=== PATIENT | male | born 1965 | race American Indian/Alaskan Native ===

== ENCOUNTER 2018-10-13 11:40 | Inpatient (IN) | payer OTHER ==
--- NOTE | 2018-10-13 11:45 | Emergency Department Report ---
Blank Doc - Documentation Documentation: This is a 53-year-old male that presents with right facial drooping and right sided weakness. This initial assessment/diagnostic orders/clinical plan/treatment(s) is/are subject to change based on patient's health status, clinical progression and re- assessment by fellow clinical providers in the ED. Further treatment and workup at subsequent clinical providers discretion. Patient/guardians urged not to elope from the ED as their condition may be serious if not clinically assessed and managed. Initial orders include: 1- Patient sent to [facility] for further evaluation and treatment 2- Stroke code 3- labs 4- CT
[2018-10-13] MEDS ORDERED: ASPIRIN PO ONE (12:03)
--- NOTE | 2018-10-13 12:04 | Emergency Department Report ---
HPI - General Chief Complaint: Neuro Symptoms/Deficit Time Seen by Provider: 10/13/18 11:44 - HPI HPI: Room 1 The patient is a 53-year-old male presenting with chief complaint of facial droop. Family states the patient has had episodes of "spacing out" and appearing as though he was in a transfer several weeks. For the past 4 days the patient has noticed difficulty speaking which includes slurred speech and the ability to get out certain words. 2 days ago coworkers noticed that "something wasn't right" with the patient but did not give any specific findings. The patient went to an urgent care facility and was diagnosed with an allergic reaction to lisinopril and carpal tunnel syndrome. Patient states he continued to notice drooling and difficulty speaking. The patient went to work today he was told to be evaluated at [facility] prior to restarting work. There is a patient was assessed and sent to the ED for further evaluation. Location: [See above] Duration: [See above] Quality: [See above] Severity: [See above] Modifying factors: [see above] Context: [see above] Mode of transportation: [not driving] ED Past Medical Hx - Past Medical History Hx Diabetes: Yes - Surgical History Past Surgical History?: No - Family History Family history: no significant - Social History Smoking Status: Never Smoker Substance Use Type: Alcohol (occasional) ED Review of Systems ROS: Stated complaint: POSS STROKE Other details as noted in HPI Constitutional: no symptoms reported Eyes: denies: eye pain ENT: denies: throat pain Respiratory: no symptoms reported Cardiovascular: denies: chest pain Endocrine: no symptoms reported Gastrointestinal: denies: vomiting Genitourinary: denies: dysuria Musculoskeletal: denies: back pain Neurological: paresthesias. denies: headache Physical Exam - Physical Exam Physical Exam: GENERAL: The patient is well-developed well-nourished male sitting on stretcher not appear to be in acute distress. [] HEENT: Normocephalic. Atraumatic. Extraocular motions are intact. Patient has moist mucous membranes. NECK: Supple. Trachea midline CHEST/LUNGS: Clear to auscultation. There is no respiratory distress noted. HEART/CARDIOVASCULAR: Regular. There is no tachycardia. There is no gallop rub or murmur. ABDOMEN: Abdomen is soft, nontender. Patient has normal bowel sounds. There is no abdominal distention. SKIN: There is no rash. There is no edema. There is no diaphoresis. NEURO: During the exam the patient appears to have focal twitching/seizure of the left face lasting approximately 25 seconds. The patient is awake and able to follow commands throughout the episode. The patient is awake, alert, and oriented. The patient is cooperative. The patient has a left-sided facial droop and his tongue deviates to the left otherwise Cranial nerves II through XII grossly intact. The patient has normal speech. Patient able to hold either leg at 30 angle for 5 second count MUSCULOSKELETAL: There is no evidence of acute injury. NIHSS= 3 LOC a. Alert= 0 Not alert but arousable to minor stimuli=1 Not alert requires repeated or strong stimuli to move= 2 Responds only reflex motor or unresponsive=3 b. asks month and age answers both correctly= 0 answers one correctly= 1 answers neither correctly= 2 Best Gaze normal= 0 abnormal in one or both but forced deviation or total paresis absent= 1 forced deviation or total gaze paresis= 2 Visual no visual loss= 0 partial hemianopia= 1 complete hemianopia= 2 bilateral hemianopia= 3 Facial Palsy normal= 0 minor paralysis= 1 (+)partial paralysis= 2 complete paralysis= 3 Motor Arm no drift= 0 drift before 10 secs but doesnt hit bed= 1 some effort against gravity= 2 no effort against gravity= 3 no movement= 4 Motor leg no drift= 0 drift before 5 secs but doesnt hit bed= 1 drifts to bed before 5 secs= 2 no effort against gravity= 3 no movement= 4 Limb ataxia absent=0 present in one limb= 1 present in two limbs= 2 Sensory normal= 0 (+)mild sensory loss= 1 severe (unaware of being touched)= 2 Best language mild/some loss of fluency= 1 severe= 2 mute= 3 Dysarthria normal= 0 slurs some words= 1 severe/unintelligible= 2 Extinction and Inattention no abnormality= 0 visual, tactile, auditory or personal inattention= 1 profound (doesnt recognize own hand or orients to only one side= 2 ED Course - Consultations Consultation #1: 10/13/18 12:04 Case discussed with Tele-neurologist- no TPA. Recommends CTA brain and neck ED Medical Decision Making - Lab Data Result diagrams: 10/13/18 11:58 10/13/18 11:58 - EKG Data -: EKG Interpreted by Mi EKG shows normal: sinus rhythm Rate: normal - EKG Data When compared to previous EKG there are: previous EKG unavailable Interpretation: other (no ischemic changes seen) - Radiology Data Radiology results: report reviewed (CT head, CT brain, CTA neck), image reviewed (CT head, CTA brain, CTA neck) [address] [address] Cat Scan Report Signed Patient: ROHAN FONSECA MR#: [id number] 6 : 1965 Acct:[id number] Age/Sex: 53 / M ADM Date: 10/13/18 Loc: ED Attending Dr: Ordering Physician: PERLA GAGE NP Date of Service: 10/13/18 Procedure(s): CT head/brain wo con Accession Number(s): [id number] cc: PERLA GAGE NP CT HEAD WITHOUT CONTRAST: HISTORY: Stroke symptoms. TECHNIQUE: Sequential 2.5mm CT images. COMPARISON: none. FINDINGS: Cerebral Parenchyma: There is subtle sulcal effacement in the right parietal lobe which is best demonstrated on images 45- 52. The brain demonstrates normal density throughout. No large hypodense ischemic infarct is identified. No chronic infarct is appreciated. Cerebellum: Within normal limits. Brainstem: Within normal limits. Ventricles: Normal. Sella: Normal. Extra-axial spaces: Normal. Basal Cisterns: Normal. Intracranial Hemorrhage: None. Midline Shift: None. Calvarium: Normal. Sinuses: Normal. Masto id Air Cells: Normal. Visualized Orbits: Normal. IMPRESSION: Subtle sulcal effacement is identified in the right parietal lobe. This does not have the typical appearance of an ischemic infarct although abnormality in this area is suspected. This could represent an evolving infarct or possibly an underlying brain lesion. Consider further imaging with MR with contrast. These findings were discussed with Dr. Xie in the emergency department at 1200 hrs. Transcribed By: TTR Dictated By: LUCILLE LEONE JR, MD Electronically Authenticated By: LUCILLE LEONE JR, MD Signed Date/Time: 10/13/181204 DD/ 02 TD/TT: 10/13/181204 [address] [address] Cat Scan Report Signed Patient: ROHAN FONSECA MR#: [id number] 6 : 1965 Acct:[id number] Age/Sex: 53 / M ADM Date: 10/13/18 Loc: ED Attending Dr: Ordering Physician: KRZYSZTOF XIE MD Date of Service: 10/13/18 Procedure(s): CT angio head Accession Number(s): [id number] cc: KRZYSZTOF XIE MD CTA HEAD: HISTORY: Dysarthria, left sided numbness. TECHNIQUE: Helical CT images after IV contrast with 0.625mm reformations. Sagittal and coronal reformats. Rotational MIP images. 3D volume rendering technique. FINDINGS: The arterial structures of the anterior and posterior circulations are patent throughout. No evidence for stenosis, occlusion or aneurysm. A small right posterior communicating artery is identified. IMPRESSION: Unremarkable CTA head. Transcribed By: TTR Dictated By: LUCILLE LEONE JR, MD Electronically Authenticated By: LUCILLE LEONE JR, MD Signed Date/Time: 10/13/18 1522 DD/ 1522 TD/TT: 10/13/18 15[address] [place] [id number] Cat Scan Report Signed Patient: ROHAN FONSECA MR#: [id number] 6 : 1965 Acct:[id number] Age/Sex: 53 / M ADM Date: 10/13/18 Loc: ED Attending Dr: Ordering Physician: KRZYSZTOF XIE MD Date of Service: 10/13/18 Procedure(s): CT angio neck Accession Number(s): [id number] cc: KRZYSZTOF XIE MD CTA NECK: HISTORY: Dysarthria, left-sided numbness. TECHNIQUE: Helical CT following IV contrast. Sagittal and coronal reformatted images. 3D volume rendering technique. Stenosis was calculated using NASCET criteria. FINDINGS: The visualized aortic arch, innominate artery and proximal bilateral subclavian arteries are widely patent with less than 20% stenosis. Within the right carotid system: Less than 20% stenosis. Within the left carotid system: There is mild partially calcified plaque in the left carotid bulb. Less than 20% stenosis. The cervical vertebral arteries are patent with less than 20% stenosis. IMPRESSION: No hemodynamically significant stenosis is identified in the neck. Transcribed By: TTR Dictated By: LUCILLE LEONE JR, MD Electronically Authenticated By: LUCILLE LEONE JR, MD Signed Date/Time: 10/13/18 152 DD/ 1520 TD/TT: 10/13/18 152 - Differential Diagnosis CVA, TIA, focal seizure, Critical care attestation.: If time is entered above; I have spent that time in minutes in the direct care of this critically ill patient, excluding procedure time. ED Disposition Clinical Impression: CVA (cerebral vascular accident) Disposition: DC-[id number] OP ADMIT IP TO THIS HOSP Is pt being admited?: Yes Does the pt Need Aspirin: Yes Condition: Fair Time of Disposition: 15:43 (hospitalist paged (Dr Mcadams))
--- NOTE | 2018-10-13 12:10 | Cat Scan Report ---
CT HEAD WITHOUT CONTRAST: HISTORY: Stroke symptoms. TECHNIQUE: Sequential 2.5mm CT images. COMPARISON: none. FINDINGS: Cerebral Parenchyma: There is subtle sulcal effacement in the right parietal lobe which is best demonstrated on images 45-52. The brain demonstrates normal density throughout. No large hypodense ischemic infarct is identified. No chronic infarct is appreciated. Cerebellum: Within normal limits. Brainstem: Within normal limits. Ventricles: Normal. Sella: Normal. Extra-axial spaces: Normal. Basal Cisterns: Normal. Intracranial Hemorrhage: None. Midline Shift: None. Calvarium: Normal. Sinuses: Normal. Mastoid Air Cells: Normal. Visualized Orbits: Normal. IMPRESSION: Subtle sulcal effacement is identified in the right parietal lobe. This does not have the typical appearance of an ischemic infarct although abnormality in this area is suspected. This could represent an evolving infarct or possibly an underlying brain lesion. Consider further imaging with MR with contrast. These findings were discussed with Dr. Jensen in the emergency department at 1200 hrs.
[2018-10-13 12:11] LABS: Basophils % (Auto) 0.6 % (0.0-1.8); Eosinophils % (Auto) 0.2 % (0.0-4.3); Hemoglobin 14.3 gm/dl (11.8-15.2); Lymphocytes % (Auto) 35.1 % (13.4-35.0); Mean Corpuscular HGB Conc 33 % (32-34); Mean Corpuscular Volume 90 fl (84-94); Monocytes # (Auto) 0.3 K/mm3 (0.0-0.8); Monocytes % (Auto) 4.4 % (0.0-7.3); Platelet Count 247 K/mm3 (140-440); Red Blood Count 4.78 M/mm3 (3.65-5.03); Red Cell Distribution Width 13.8 % (13.2-15.2)
[2018-10-13 12:38] LABS: INR 0.9 (0.87-1.13); Partial Thromboplastin Time 20.7 Sec. (24.2-36.6)
[2018-10-13 12:41] LABS: Creatine Kinase MB 2.4 ng/mL (0.0-4.0)
[2018-10-13 12:42] LABS: BUN/Creatinine Ratio 14; Blood Urea Nitrogen 14 mg/dL (9-20); Calcium 9.8 mg/dL (8.4-10.2); Hemolysis Index 0
[2018-10-13] MEDS ORDERED: ATIVAN IV ONE (13:15)
[2018-10-13] MEDS ORDERED: ATIVAN ONE (13:16)
--- NOTE | 2018-10-13 15:25 | Cat Scan Report ---
CTA NECK: HISTORY: Dysarthria, left-sided numbness. TECHNIQUE: Helical CT following IV contrast. Sagittal and coronal reformatted images. 3D volume rendering technique. Stenosis was calculated using NASCET criteria. FINDINGS: The visualized aortic arch, innominate artery and proximal bilateral subclavian arteries are widely patent with less than 20% stenosis. Within the right carotid system: Less than 20% stenosis. Within the left carotid system: There is mild partially calcified plaque in the left carotid bulb. Less than 20% stenosis. The cervical vertebral arteries are patent with less than 20% stenosis. IMPRESSION: No hemodynamically significant stenosis is identified in the neck.
--- NOTE | 2018-10-13 15:27 | Cat Scan Report ---
CTA HEAD: HISTORY: Dysarthria, left sided numbness. TECHNIQUE: Helical CT images after IV contrast with 0.625mm reformations. Sagittal and coronal reformats. Rotational MIP images. 3D volume rendering technique. FINDINGS: The arterial structures of the anterior and posterior circulations are patent throughout. No evidence for stenosis, occlusion or aneurysm. A small right posterior communicating artery is identified. IMPRESSION: Unremarkable CTA head.
--- NOTE | 2018-10-13 16:40 | Consultation ---
History of Present Illness Consult date: 10/13/18 History of present illness: [facility] [id number] : 67 Impression: Stroke : no tpa last known well was 4 days ago, possible right bg stroke, will obtain CTA H/N - Not a tpa candidate due to: (No tPA last known normal is four days prior), still concerned about thrombus because of fluctuating signs, probably outside of the window. If CTA H/N is negative for thrombus would Tele, IV fluids, swallow study, Asprin if no contraindications, PT/OT/ST, and Echo, and inpatient neuro consult. ADDENDUM CTA H/N is negative, Differential Diagnosis: 1. Cardioembolic stroke 2. Small vessel disease/lacune 3. Thromboembolic, [id number] mechanism 4. Hypercoagulable state-related infarct 5. Transient ischemic attack 6. Thrombotic mechanism, large artery disease Comments: [facility] contacted: 1147 am [facility] at bedside: 1150 am NIHSS assessment time: same Recommendations: Inpatient neurology consultation Inpatient stroke evaluation as per Neurology/ Internal Medicine Discussed with ED MD Please call with questions CC History of Present Illness Patient is a 53 year old male whose noticed that upon wake up he had slurred speech. He was noraml then , and was slurred and has been like that for a few days, that his speech was slurrred. He went to the job, and did not seem correc ton Wednesday and could not come back till cleared. he has weakness in lef tface. Diagnostic: CT head without Exam: NIHSS is 4 1A: Level of Consciousness - Alert; keenly responsive 0 1B: Ask Month and Age - Both Questions Right 0 1C: 'Blink Eyes' & 'Squeeze Hands' - Performs Both Tasks 0 2: Test Horizontal Extraocular Movements - Normal 0 3: Test Visual Prakash - No Visual Loss 0 4: Test Facial Palsy - Minor paralysis (flat nasolabial fold, smile asymetry) +1 5A: Test Left Arm Motor Drift - Drift, but doesn't hit bed +1 5B: Test Right Arm Motor Drift - No Drift for 10 Seconds 0 6A: Test Left Leg Motor Drift - Drift, but doesn't hit bed +1 6B: Test Right Leg Motor Drift - No Drift for 5 Seconds 0 7: Test Limb Ataxia - No Ataxia 0 8: Test Sensation - Mild-Moderate Loss: Less Sharp/More Dull +1 9: Test Language/Aphasia - Normal; No aphasia 0 10: Test Dysarthria - Normal 0 11: Test Extinction/Inattention - No abnormality 0 Medical Decision Making: - Extensive number of diagnosis or management options are considered above. - Extensive amount of complex data reviewed. - High risk of complication and/or morbidity or mortality are associated with differential diagnostic considerations above. - There may be Uncertain outcome and increased probability of prolonged functional impairment or high probability of severe prolonged functional impairment associated with some of these differential diagnosis. Medical Data Reviewed: 1.Data reviewed include clinical labs, radiology, Medical Tests; 2.Tests results discussed w/performing or interpreting physician; 3.Obtain ing/reviewing old medical records; 4.Obtaining case history from another source; 5.Independent review of image, tracing or specimen. Patient was informed the Neurology Consult would happen via telehealth (remote video) and consented to receiving care in this manner. Medications and Allergies Allergies Allergy/AdvReac Type Severity Reaction Status Date / Time No Known Allergies Allergy Verified 10/13/18 13:15 Home Medications Medication Instructions Recorded Confirmed Last Taken Type Atorvastatin [Lipitor Tab] 80 mg PO QHS 10/13/18 10/13/18 1 Day Ago History ~10/12/18 Insulin Degludec [Tresiba 25 unit SQ HS 10/13/18 10/13/18 1 Day Ago History Flextouch U-100] ~10/12/18 Lisinopril [Zestril] 5 mg PO QDAY 10/13/18 10/13/18 1 Day Ago History ~10/12/18 metFORMIN [Glucophage] 500 mg PO BID 10/13/18 10/13/18 1 Day Ago History ~10/12/18 Physical Examination - Vital Signs Vital Signs: Vital Signs Pulse Resp BP Pulse Ox 105 H 22 133/113 95 10/13/18 12:00 10/13/18 12:00 10/13/18 12:00 10/13/18 12:00 Results - Laboratory Findings CBC and BMP: 10/13/18 11:58 10/13/18 11:58 Abnormal Lab Findings: Abnormal Labs 10/13/18 10/13/18 10/13/18 11:48 11:58 11:58 Lymph % (Auto) 35.1 H APTT 20.7 L Thrombin Time 20.0 H Chloride Glucose POC Glucose 345 H Total Creatine Kinase 10/13/18 11:58 Lymph % (Auto) APTT Thrombin Time Chloride 97.4 L Glucose 421 H POC Glucose Total Creatine Kinase 210 H
[2018-10-13 17:34] LABS: Bilirubin,Urine NEG (Negative); Blood,Urine NEG (Negative); Color,Urine Yellow (Yellow); Mucus,Urine FEW /HPF; Protein,Urine <15 mg/dL mg/dL (Negative); RBC,Urine < 1.0 /HPF (0.0-6.0); Urobilinogen,Urine < 2.0 mg/dL (<2.0); WBC,Urine < 1.0 /HPF (0.0-6.0)
--- NOTE | 2018-10-13 17:51 | History and Physical Report ---
History of Present Illness Date of examination: 10/13/18 Date of admission: 10/13/18 15:45 Chief complaint: Left-sided numbness for 4 days History of present illness: 53-year-old male with history of hypertension, insulin-dependent diabetes comes in for left-sided numbness of 4 days' duration. Patient also has some weakness on the left side which has resolved. Patient has some left facial weakness which is persistent. No nausea no vomiting. No nasal regurgitation of fluid. Patient has some dysarthria and also drooling of fluid from the left side of the mouth. No fever or chills. No diplopia. No ataxic gait. Patient went to his PCP and was referred to emergency room for further evaluation. Past Medical History Diabetes: Yes Hypertension Hyperlipidemia Was admitted as DKA few years ago.--About 20 years ago Surgical History Past Surgical History?: No Family History Family history: no significant Social History Smoking Status: Never Smoker Substance Use Type: Alcohol (occasional) Review of Systems ROS: Stated complaint: POSS STROKE Other details as noted in HPI Constitutional: no symptoms reported Eyes: denies: eye pain ENT: denies: throat pain Respiratory: no symptoms reported Cardiovascular: denies: chest pain Endocrine: no symptoms reported Gastrointestinal: denies: vomiting Genitourinary: denies: dysuria Musculoskeletal: denies: back pain Neurological: paresthesias. denies: headache , left-sided numbness and left facial weakness Medications and Allergies Allergies Allergy/AdvReac Type Severity Reaction Status Date / Time No Known Allergies Allergy Verified 10/13/18 13:15 Home Medications Medication Instructions Recorded Confirmed Last Taken Type Atorvastatin [Lipitor Tab] 80 mg PO QHS 10/13/18 10/13/18 1 Day Ago History ~10/12/18 Insulin Degludec [Tresiba 25 unit SQ HS 10/13/18 10/13/18 1 Day Ago History Flextouch U-100] ~10/12/18 Lisinopril [Zestril] 5 mg PO QDAY 10/13/18 10/13/18 1 Day Ago History ~10/12/18 metFORMIN [Glucophage] 500 mg PO BID 10/13/18 10/13/18 1 Day Ago History ~10/12/18 Exam - Constitutional Vitals: Temp Pulse Resp BP Pulse Ox 100 H 18 136/94 97 10/13/18 13:16 10/13/18 13:16 10/13/18 13:16 10/13/18 13:16 General appearance: Present: no acute distress, well-nourished - EENT Eyes: Present: PERRL ENT: hearing intact, clear oral mucosa - Neck Neck: Present: supple, normal ROM - Respiratory Respiratory effort: normal Respiratory: bilateral: CTA - Cardiovascular Heart rate: 100 Rhythm: regular Heart Sounds: Present: S1 & S2. Absent: rub, click - Extremities Extremities: no ischemia, pulses intact, pulses symmetrical, No edema Peripheral Pulses: within normal limits - Abdominal General gastrointestinal: Present: soft, non-tender, non-distended, normal bowel sounds Male genitourinary: Present: normal - Rectal Rectal Exam: deferred - Integumentary Integumentary: Present: clear, warm, dry - Musculoskeletal Musculoskeletal: gait normal, strength equal bilaterally - Psychiatric Psychiatric: appropriate mood/affect, intact judgment & insight, other (left facial weakness, no motor deficits power is 5/5 reflexes are normal to brisk) - Neurologic Neurologic: CNII-XII intact, moves all extremities Results - Labs CBC & Chem 7: 10/13/18 11:58 10/13/18 11:58 Labs: Laboratory Last Values WBC 5.8 K/mm3 (4.5-11.0) 10/13/18 11:58 RBC 4.78 M/mm3 (3.65-5.03) 10/13/18 11:58 Hgb 14.3 gm/dl (11.8-15.2) 10/13/18 11:58 Hct 43.0 % (35.5-45.6) 10/13/18 11:58 MCV 90 fl (84-94) 10/13/18 11:58 MCH 30 pg (28-32) 10/13/18 11:58 MCHC 33 % (32-34) 10/13/18 11:58 RDW 13.8 % (13.2-15.2) 10/13/18 11:58 Plt Count 247 K/mm3 (140-440) 10/13/18 11:58 Lymph % (Auto) 35.1 % (13.4-35.0) H 10/13/18 11:58 [place] % (Auto) 4.4 % (0.0-7.3) 10/13/18 11:58 Eos % (Auto) 0.2 % (0.0-4.3) 10/13/18 11:58 Baso % (Auto) 0.6 % (0.0-1.8) 10/13/18 11:58 Lymph # 2.0 K/mm3 (1.2-5.4) 10/13/18 11:58 [place] # 0.3 K/mm3 (0.0-0.8) 10/13/18 11:58 Eos # 0.0 K/mm3 (0.0-0.4) 10/13/18 11:58 Baso # 0.0 K/mm3 (0.0-0.1) 10/13/18 11:58 Seg Neutrophils % 59.7 % (40.0-70.0) 10/13/18 11:58 Seg Neutrophils # 3.5 K/mm3 (1.8-7.7) 10/13/18 11:58 PT 12.7 Sec. (12.2-14.9) 10/13/18 11:58 INR 0.90 (0.87-1.13) 10/13/18 11:58 APTT 20.7 Sec. (24.2-36.6) L 10/13/18 11:58 Thrombin Time 20.0 Sec. (15.1-19.6) H 10/13/18 11:58 Sodium 138 mmol/L (137-145) 10/13/18 11:58 Potassium 4.6 mmol/L (3.6-5.0) 10/13/18 11:58 Chloride 97.4 mmol/L (98-107) L 10/13/18 11:58 Carbon Dioxide 24 mmol/L (22-30) 10/13/18 11:58 Anion Gap 21 mmol/L 10/13/18 11:58 BUN 14 mg/dL (9-20) 10/13/18 11:58 Creatinine 1.0 mg/dL (0.8-1.5) 10/13/18 11:58 Estimated GFR > 60 ml/min 10/13/18 11:58 BUN/Creatinine Ratio 14 % 10/13/18 11:58 Glucose 421 mg/dL (75-100) H 10/13/18 11:58 POC Glucose 345 (70-105) H 10/13/18 11:48 Calcium 9.8 mg/dL (8.4-10.2) 10/13/18 11:58 Total Creatine Kinase 210 units/L (55-170) H 10/13/18 11:58 CK-MB (CK-2) 2.4 ng/mL (0.0-4.0) 10/13/18 11:58 CK-MB (CK-2) Rel Index 1.1 (0-4) 10/13/18 11:58 Troponin T < 0.010 ng/mL (0.00-0.029) 10/13/18 11:58 Urine Color Yellow (Yellow) 10/13/18 17:04 Urine Turbidity Clear (Clear) 10/13/18 17:04 Urine pH 5.0 (5.0-7.0) 10/13/18 17:04 Ur Specific [place] 1.046 (1.003-1.030) H 10/13/18 17:04 Urine Protein <15 mg/dl mg/dL (Negative) 10/13/18 17:04 Urine Glucose (UA) >=500 mg/dL (Negative) 10/13/18 17:04 Urine Ketones 20 mg/dL (Negative) 10/13/18 17:04 Urine Blood Neg (Negative) 10/13/18 17:04 Urine Nitrite Neg (Negative) 10/13/18 17:04 Urine Bilirubin Neg (Negative) 10/13/18 17:04 Urine Urobilinogen < 2.0 mg/dL (<2.0) 10/13/18 17:04 Ur Leukocyte Esterase Neg (Negative) 10/13/18 17:04 Urine WBC (Auto) < 1.0 /HPF (0.0-6.0) 10/13/18 17:04 Urine RBC (Auto) < 1.0 /HPF (0.0-6.0) 10/13/18 17:04 Urine Mucus Few /HPF 10/13/18 17:04 Plasma/Serum Alcohol < 0.01 % (0-0.07) 10/13/18 11:58 Blood Type A POSITIVE 10/13/18 11:58 Antibody Screen Negative 10/13/18 11:58 Short CBC 10/13/18 Range/Units 11:58 WBC 5.8 (4.5-11.0) K/mm3 Hgb 14.3 (11.8-15.2) gm/dl Hct 43.0 (35.5-45.6) % Plt Count 247 (140-440) K/mm3 BMP 10/13/18 11:58 Sodium 138 Potassium 4.6 Chloride 97.4 L Carbon Dioxide 24 BUN 14 Creatinine 1.0 Glucose 421 H Calcium 9.8 Cardiac Enzymes 10/13/18 Range/Units 11:58 Total Creatine Kinase 210 H (55-170) units/L CK-MB (CK-2) 2.4 (0.0-4.0) ng/mL Troponin T < 0.010 (0.00-0.029) ng/mL Urine 10/13/18 Range/Units 17:04 Urine Color Yellow (Yellow) Urine pH 5.0 (5.0-7.0) Ur Specific [place] 1.046 H (1.003-1.030) Urine Protein <15 mg/dl (Negative) mg/dL Urine Glucose (UA) >=500 (Negative) mg/dL - Imaging and Cardiology EKG: report reviewed CT Scan - head: report reviewed Imaging and Cardiology: CTA Head IMPRESSION: Unremarkable CTA head. CTA Neck IMPRESSION: No hemodynamically significant stenosis is identified in the neck. CT head IMPRESSION: Subtle sulcal effacement is identified in the right parietal lobe. This does not have the typical appearance of an ischemic infarct although abnormality in this area is suspected. This could represent an evolving infarct or possibly an underlying brain lesion. Consider further imaging with MR with contrast. EKG Sinus tachycardia Possible left atrial enlargement ST elevation nonspecific Lateral wall also involved Assessment and Plan Advance Directives: Yes (full code) VTE prophylaxis?: Chemical Plan of care discussed with patient/family: Yes - Patient Problems (1) Acute CVA (cerebrovascular accident) Current Visit: Yes Status: Acute Plan to address problem: Patient probably has acute stroke Patient probably has a right basal ganglia infarct affecting the left side with numbness. Patient to get MRI/MR echocardiogram and carotid duplex scan and echocardiogram Neurology consult requested (2) Insulin dependent diabetes mellitus Current Visit: Yes Status: Chronic Plan to address problem: Continue home insulin and coverage Check hemoglobin A1c Continue home insulin and adjust insulin dosage (3) Hypertension Current Visit: Yes Status: Chronic Qualifiers: Hypertension type: essential hypertension Qualified Code(s): I10 - Essential (primary) hypertension Plan to address problem: Continue antihypertensives (4) Hyperlipidemia Current Visit: Yes Status: Chronic Qualifiers: Hyperlipidemia type: mixed hyperlipidemia Qualified Code(s): E78.2 - Mixed hyperlipidemia Plan to address problem: Continue statins (5) DVT prophylaxis Current Visit: Yes Status: Acute Plan to address problem: On Lovenox and GI prophylaxis
[2018-10-13] MEDS ORDERED: SODIUM CHLORIDE FLUSH SYRINGE 10 ML IV PRN ×2 (17:53→18:00)
[2018-10-13] MEDS ORDERED: TYLENOL PO PRN (17:53)
[2018-10-13] MEDS ORDERED: ZOFRAN IV PRN (17:53)
[2018-10-13] MEDS ORDERED: PERCOCET 5/325 PO PRN (17:54)
[2018-10-13] MEDS ORDERED: IBUPROFEN PO PRN (17:54)
[2018-10-13] MEDS ORDERED: DILAUDID IV PRN (17:54)
[2018-10-13] MEDS ORDERED: ZESTRIL PO SCH (18:00)
[2018-10-13] MEDS ORDERED: ATIVAN IV PRN (18:03)
[2018-10-13] MEDS ORDERED: AFLURIA QUAD 2018-2019 SYRINGE IM ONE (18:47)
[2018-10-13] MEDS: PLAVIX PO SCH (19:09)
[2018-10-13] MEDS: COZAAR PO SCH (19:09)
[2018-10-13] MEDS: NACL 0.9% 1000 ML 1,000 ML IV SCH (19:10)
[2018-10-13] MEDS: PEPCID PO SCH (21:41)
[2018-10-13] MEDS: GLUCOPHAGE PO SCH (21:41)
[2018-10-13] MEDS: HumaLOG SUB-Q SCH (21:42)
[2018-10-13] MEDS: LOVENOX SUB-Q SCH (21:42)
[2018-10-13] MEDS: SODIUM CHLORIDE FLUSH SYRINGE 10 ML IV SCH (21:45)
[2018-10-13] MEDS ORDERED: INSULIN DEGLUDEC 25 UNIT SQ SCH (22:00)
[2018-10-14 05:49] LABS: Hematocrit 39.5 % (35.5-45.6); Hemoglobin 13.3 gm/dl (11.8-15.2); Mean Corpuscular HGB Conc 34 % (32-34); Mean Corpuscular Volume 90 fl (84-94); Platelet Count 213 K/mm3 (140-440); Red Blood Count 4.39 M/mm3 (3.65-5.03); Red Cell Distribution Width 13.6 % (13.2-15.2)
[2018-10-14 06:03] LABS: Alanine Aminotransferase 27 units/L (7-56); Albumin 3.3 g/dL (3.9-5); BUN/Creatinine Ratio 14; Blood Urea Nitrogen 11 mg/dL (9-20); Calcium 8.8 mg/dL (8.4-10.2); HDL Cholesterol 40 mg/dL (40-59); Hemolysis Index 9; LDL Cholesterol,Direct 74 mg/dL (50-130)
[2018-10-14] MEDS: NACL 0.9% 1000 ML 1,000 ML IV SCH (06:32)
[2018-10-14 07:36] LABS: Basophils % (Manual) 0 % (0.0-1.8); Total Cells Counted 100
[2018-10-14 07:37] LABS: Anisocytosis 1+; Ovalocytes Few; Platelet Estimate Consistent w Auto
[2018-10-14] MEDS: HumaLOG SUB-Q SCH ×4 (08:40→22:16)
[2018-10-14] MEDS ORDERED: ASPIRIN PO SCH (10:00)
[2018-10-14] MEDS: PLAVIX PO SCH (10:23)
[2018-10-14] MEDS: SODIUM CHLORIDE FLUSH SYRINGE 10 ML IV SCH ×2 (10:24→22:04)
[2018-10-14] MEDS: PEPCID PO SCH ×2 (10:24→22:18)
[2018-10-14] MEDS: GLUCOPHAGE PO SCH ×2 (10:24→22:03)
[2018-10-14] MEDS: COZAAR PO SCH (10:26)
--- NOTE | 2018-10-14 12:59 | Vascular Lab Report ---
PROCEDURE: VL CAROTID DUPLEX BILAT HISTORY: stroke FINDINGS: Real-time ultrasound of the cervical arterial vasculature was performed using grayscale and color Doppler images. On the right, peak systolic velocity in the common carotid artery was 96 cm/s. In the internal caroti d it was 76 cm/s and in the external carotid 122 cm/s. Peak systolic velocity in the vertebral artery was 46 cm/s and antegrade. The ratio of flow of the internal carotid to the common carotid was 0.79 which is within normal limits. There is minimal plaque in the carotid bulb resulting in an estimated 10-15% stenosis On the left, peak systolic velocity in the common carotid artery was 100 cm/s. In the internal caroti d it was 78 cm/s and in the external carotid 90 cm/s. Flow in the vertebral artery was antegrade at 4 1 cm/s. There is plaque in the carotid bulb resulting in a short segment estimated 25% stenosis. IMPRESSION: No stenosis of greater than 50% is seen in the cervical arterial vasculature This document is electronically signed by Paul Link MD., October 14 2018 12:57:36 PM ET
--- NOTE | 2018-10-14 13:58 | Progress Note ---
Subjective Date of service: 10/14/18 Interval history: went ovwer the MRA and there is large area of distal low flow in distal MCA thwere is subacute infarct on the MRI right distal MCA no bleed Objective - Vital Sign Vital Signs - 12hr 10/14/18 10/14/18 10/14/18 03:44 07:49 10:00 Temperature 97.4 F L 97.7 F Pulse Rate 81 86 Respiratory 13 18 18 Rate Blood Pressure 127/80 103/64 O2 Sat by Pulse 99 100 Oximetry 10/14/18 10:26 Temperature Pulse Rate 90 Respiratory Rate Blood Pressure 107/76 O2 Sat by Pulse Oximetry - Laboratory Findings CBC and BMP: 10/14/18 04:47 10/14/18 04:47 Abnormal Lab Findings: Abnormal Labs 10/13/18 10/13/18 10/13/18 11:48 11:58 11:58 Lymph % (Auto) 35.1 H Lymphocytes % (Manual) APTT 20.7 L Thrombin Time 20.0 H Sodium Chloride Glucose POC Glucose 345 H Hemoglobin A1c Total Creatine Kinase Total Protein Albumin Triglycerides Ur Specific [place] 10/13/18 10/13/18 10/13/18 11:58 12:55 17:04 Lymph % (Auto) Lymphocytes % (Manual) APTT Thrombin Time Sodium Chloride 97.4 L Glucose 421 H POC Glucose Hemoglobin A1c 17.4 H Total Creatine Kinase 210 H Total Protein Albumin Triglycerides Ur Specific [place] 1.046 H 10/13/18 10/14/18 10/14/18 20:56 04:47 04:47 Lymph % (Auto) Lymphocytes % (Manual) 54.0 H APTT Thrombin Time Sodium 148 H D Chloride 95.2 L Glucose 200 H POC Glucose 305 H Hemoglobin A1c Total Creatine Kinase Total Protein 6.2 L Albumin 3.3 L Triglycerides 198 H Ur Specific [place]
[2018-10-14] MEDS ORDERED: ATIVAN IV PRN (15:35)
--- NOTE | 2018-10-14 15:39 | Progress Note ---
Assessment and Plan /Acute CVA (cerebrovascular accident) Patient probably has acute stroke Patient to get MRI/MR echocardiogram and carotid duplex scan and echocardiogram Neurology consult requested /Acute Seizure, new onset as needed ativan, iv keppra ordered EEG / Insulin dependent diabetes mellitus Continue home insulin and coverage Check hemoglobin A1c Continue home insulin and adjust insulin dosage / Hypertension Continue antihypertensives / Hyperlipidemia Continue statins /DVT prophylaxis On Lovenox and GI prophylaxis Brief History: 53-year-old male with history of hypertension, insulin-dependent diabetes comes in for left-sided numbness of 4 days' duration. Radiological study: CTA Head IMPRESSION: Unremarkable CTA head. CTA Neck IMPRESSION: No hemodynamically significant stenosis is identified in the neck. CT head IMPRESSION: Subtle sulcal effacement is identified in the right parietal lobe. This does not have the typical appearance of an ischemic infarct although ab normality in this area is suspected. This could represent an evolving infarct or possibly an underlying brain lesion. Consider further imaging with MR with contrast. EKG Sinus tachycardia Possible left atrial enlargement ST elevation nonspecific Lateral wall also involved Subjective Date of service: 10/14/18 Interval history: Patient seen and examined Noted to have seizure like activity during PT denies chest pain, tolerating diet Objective - Exam Narrative Exam: General appearance: Present: no acute distress, well-nourished - EENT Eyes: Present: PERRL ENT: hearing intact, clear oral mucosa - Neck Neck: Present: supple, normal ROM - Respiratory Respiratory effort: normal Respiratory: bilateral: CTA - Cardiovascular Heart rate: 100 Rhythm: regular Heart Sounds: Present: S1 & S2. Absent: rub, click - Extremities Extremities: no ischemia, pulses intact, pulses symmetrical, No edema Peripheral Pulses: within normal limits - Abdominal General gastrointestinal: Present: soft, non-tender, non-distended, normal bowel sounds Male genitourinary: Present: normal - Rectal Rectal Exam: deferred - Integumentary Integumentary: Present: clear, warm, dry - Musculoskeletal Musculoskeletal: gait normal, strength equal bilaterally - Psychiatric Psychiatric: appropriate mood/affect, intact judgment & insight, other (left facial weakness, no motor deficits power is 5/5 reflexes are normal to brisk) - Neurologic Neurologic: CNII-XII intact, moves all extremities - Constitutional Vitals: Vital Signs - 12hr 10/14/18 10/14/18 10/14/18 03:44 07:49 10:00 Temperature 97.4 F L 97.7 F Pulse Rate 81 86 Respiratory 13 18 18 Rate Blood Pressure 127/80 103/64 O2 Sat by Pulse 99 100 100 Oximetry 10/14/18 10:26 Temperature Pulse Rate 90 Respiratory Rate Blood Pressure 107/76 O2 Sat by Pulse Oximetry - Labs CBC & Chem 7: 10/14/18 04:47 10/14/18 04:47 Labs: Abnormal lab results 10/13/18 10/13/18 10/13/18 Range/Units 12:55 17:04 20:56 Lymphocytes % (Manual) (13.4-35.0) % Sodium (137-145) mmol/L Chloride (98-107) mmol/L Glucose (75-100) mg/dL POC Glucose 305 H (70-105) Hemoglobin A1c 17.4 H (4-6) % Total Protein (6.3-8.2) g/dL Albumin (3.9-5) g/dL Triglycerides (2-149) mg/dL Ur Specific [place] 1.046 H (1.003-1.030) 10/14/18 10/14/18 10/14/18 Range/Units 04:47 04:47 14:54 Lymphocytes % (Manual) 54.0 H (13.4-35.0) % Sodium 148 H D (137-145) mmol/L Chloride 95.2 L (98-107) mmol/L Glucose 200 H (75-100) mg/dL POC Glucose 368 H (70-105) Hemoglobin A1c (4-6) % Total Protein 6.2 L (6.3-8.2) g/dL Albumin 3.3 L (3.9-5) g/dL Triglycerides 198 H (2-149) mg/dL Ur Specific [place] (1.003-1.030)
--- NOTE | 2018-10-14 16:10 | Magnetic Resonance Report ---
MRI BRAIN WITHOUT CONTRAST: 10/14/18 CLINICAL: Stroke. COMPARISON: 10/13/18 CT head TECHNIQUE: Axial diffusion, T1, T2, gradient echo T2*, coronal and axial FLAIR and sagittal T1 sequences on a 1.5 [place] magnet. FINDINGS: Restricted diffusion and gyral swelling involving the right posterior parietal lobe and a few adjacent gyri of the right temporal and occipital lobes. The restricted diffusion does not extend to the white matter. No other restricted diffusion. Mild mass effect of the involved gyri. No mass. No hemorrhage or extra-axial collection. No chronic microbleeds on the gradient echo sequence. Normal pituitary and optic chiasm. The brainstem and cerebellum are normal. Intact vascular flow voids. Normal sinuses. The orbits, and soft tissues are normal. Normal calvarium and skull base. IMPRESSION: Subacute nonhemorrhagic right posterior parietal cortical infarcts with smaller subacute nonhemorrhagic cortical infarcts involving adjacent right temporal and occipital gyri.
--- NOTE | 2018-10-14 16:13 | Magnetic Resonance Report ---
MRA HEAD WITHOUT CONTRAST: 10/14/18 CLINICAL: Stroke. TECHNIQUE: Axial 3-D [id number] MR angiography of the [place] with review of axial source images. FINDINGS: Intact [place] with no aneurysm, stenosis or occlusion. Relatively symmetric blood flow in the anterior, middle and posterior cerebral arteries. However, there is evidence of luxury perfusion involving the distal right MCA territory. Normal basilar and vertebral arteries. IMPRESSION: Luxury perfusion involving the distal right MCA territory consistent with a subacute infarct. No high-grade stenosis or occlusion.
[2018-10-14] MEDS: KEPPRA 750 MG in NACL 0.9% 100 ML IV SCH (16:47)
[2018-10-14] MEDS: LOVENOX SUB-Q SCH (22:03)
[2018-10-14] MEDS: TRESIBA FLEXTOUCH U-100 SQ SCH (22:09)
[2018-10-15] MEDS ORDERED: ASPIRIN PO SCH (03:12)
[2018-10-15] MEDS: KEPPRA 750 MG in NACL 0.9% 100 ML IV SCH ×2 (05:16→17:03)
[2018-10-15] MEDS: HumaLOG SUB-Q SCH ×4 (08:07→22:13)
[2018-10-15] MEDS: COZAAR PO SCH (09:06)
[2018-10-15] MEDS: GLUCOPHAGE PO SCH ×2 (09:07→22:07)
[2018-10-15] MEDS: PEPCID PO SCH ×2 (09:07→22:06)
[2018-10-15] MEDS: PLAVIX PO SCH (09:07)
[2018-10-15] MEDS: SODIUM CHLORIDE FLUSH SYRINGE 10 ML IV SCH ×2 (09:07→22:48)
[2018-10-15] MEDS: BABY ASPIRIN PO SCH (09:50)
[2018-10-15 10:34] LABS: BUN/Creatinine Ratio 9; Blood Urea Nitrogen 6 mg/dL (9-20); Calcium 8.4 mg/dL (8.4-10.2); Hemolysis Index 12
--- NOTE | 2018-10-15 10:34 | Progress Note ---
Assessment and Plan Assessment and plan: Acute CVA (cerebrovascular accident) MRI confirms stroke on right side Neurology consulted Acute Seizure, new onset as needed atguillermo v[place] I discussed with him at bedside. I also explained that by law he cannot drive or operate any heavy machinery for at least 6 months, and he understands Insulin dependent diabetes mellitus Continue home insulin and coverage Check hemoglobin A1c Continue home insulin and adjust insulin dosage Hypertension Continue antihypertensives Hyperlipidemia Continue statins DVT prophylaxis On Lovenox and GI prophylaxis History Interval history: Had 4 seizure episodes yesterday Hospitalist Physical - Physical exam Narrative exam: Gen: Not in acute distress, lying in bed HEENT: Normocephalic, atraumatic Neck: supple, no JVD Heart: S1 and S2 reg, no murmurs, rubs or gallop Lungs: Clear, no crackles Abd: soft, non tender, non distended, normal BS Ext: No edema, no clubbing, no cyanosis, left arm av fistula Neuro: AAO x 3, moves all ext Psych:Normal mood - Constitutional Vitals: Temp Pulse Resp BP Pulse Ox 97.7 F 82 18 122/84 99 10/15/18 07:42 10/15/18 09:06 10/15/18 07:42 10/15/18 09:06 10/15/18 07:42 General appearance: Present: no acute distress, well-nourished Results - Labs CBC & Chem 7: 10/14/18 04:47 10/15/18 09:45 Labs: Laboratory Last Values WBC 4.9 K/mm3 (4.5-11.0) 10/14/18 04:47 RBC 4.39 M/mm3 (3.65-5.03) 10/14/18 04:47 Hgb 13.3 gm/dl (11.8-15.2) 10/14/18 04:47 Hct 39.5 % (35.5-45.6) 10/14/18 04:47 MCV 90 fl (84-94) 10/14/18 04:47 MCH 30 pg (28-32) 10/14/18 04:47 MCHC 34 % (32-34) 10/14/18 04:47 RDW 13.6 % (13.2-15.2) 10/14/18 04:47 Plt Count 213 K/mm3 (140-440) 10/14/18 04:47 Lymph % (Auto) Manager Combination 10/14/18 04:47 [place] % (Auto) 4.4 % (0.0-7.3) 10/13/18 11:58 Eos % (Auto) 0.2 % (0.0-4.3) 10/13/18 11:58 Baso % (Auto) 0.6 % (0.0-1.8) 10/13/18 11:58 Lymph # 2.0 K/mm3 (1.2-5.4) 10/13/18 11:58 [place] # 0.3 K/mm3 (0.0-0.8) 10/13/18 11:58 Eos # 0.0 K/mm3 (0.0-0.4) 10/13/18 11:58 Baso # 0.0 K/mm3 (0.0-0.1) 10/13/18 11:58 Add Manual Diff Complete 10/14/18 04:47 Total Counted 100 10/14/18 04:47 Seg Neutrophils % Manager Combination 10/14/18 04:47 Seg Neuts % (Manual) 40.0 % (40.0-70.0) 10/14/18 04:47 Band Neutrophils % 1.0 % 10/14/18 04:47 Lymphocytes % (Manual) 54.0 % (13.4-35.0) H 10/14/18 04:47 Reactive Lymphs % (Man) 0 % 10/14/18 04:47 Monocytes % (Manual) 2.0 % (0.0-7.3) 10/14/18 04:47 Eosinophils % (Manual) 3.0 % (0.0-4.3) 10/14/18 04:47 Basophils % (Manual) 0 % (0.0-1.8) 10/14/18 04:47 Metamyelocytes % 0 % 10/14/18 04:47 Myelocytes % 0 % 10/14/18 04:47 Promyelocytes % 0 % 10/14/18 04:47 Blast Cells % 0 % 10/14/18 04:47 Nucleated RBC % Not Reportable 10/14/18 04:47 Seg Neutrophils # 3.5 K/mm3 (1.8-7.7) 10/13/18 11:58 Seg Neutrophils # Man 2.0 K/mm3 (1.8-7.7) 10/14/18 04:47 Band Neutrophils # 0.0 K/mm3 10/14/18 04:47 Lymphocytes # (Manual) 2.6 K/mm3 (1.2-5.4) 10/14/18 04:47 Abs React Lymphs (Man) 0.0 K/mm3 10/14/18 04:47 Monocytes # (Manual) 0.1 K/mm3 (0.0-0.8) 10/14/18 04:47 Eosinophils # (Manual) 0.1 K/mm3 (0.0-0.4) 10/14/18 04:47 Basophils # (Manual) 0.0 K/mm3 (0.0-0.1) 10/14/18 04:47 Metamyelocytes # 0.0 K/mm3 10/14/18 04:47 Myelocytes # 0.0 K/mm3 10/14/18 04:47 Promyelocytes # 0.0 K/mm3 10/14/18 04:47 Blast Cells # 0.0 K/mm3 10/14/18 04:47 WBC Morphology Not Reportable 10/14/18 04:47 Hypersegmented Neuts Not Reportable 10/14/18 04:47 Hyposegmented Neuts Not Reportable 10/14/18 04:47 Hypogranular Neuts Not Reportable 10/14/18 04:47 Smudge Cells Not Reportable 10/14/18 04:47 Toxic Granulation Not Reportable 10/14/18 04:47 Toxic Vacuolation Not Reportable 10/14/18 04:47 Dohle Bodies Not Reportable 10/14/18 04:47 Pelger-Huet Anomaly Not Reportable 10/14/18 04:47 Radha Rods Not Reportable 10/14/18 04:47 Platelet Estimate Consistent w auto 10/14/18 04:47 Clumped Platelets Not Reportable 10/14/18 04:47 Plt Clumps, EDTA Not Reportable 10/14/18 04:47 Large Platelets Not Reportable 10/14/18 04:47 Giant Platelets Not Reportable 10/14/18 04:47 Platelet Satelliting Not Reportable 10/14/18 04:47 Plt Morphology Comment Not Reportable 10/14/18 04:47 RBC Morphology Not Reportable 10/14/18 04:47 Dimorphic RBCs Not Reportable 10/14/18 04:47 Polychromasia Not Reportable 10/14/18 04:47 Hypochromasia Not Reportable 10/14/18 04:47 Poikilocytosis Not Reportable 10/14/18 04:47 Anisocytosis 1+ 10/14/18 04:47 Microcytosis Not Reportable 10/14/18 04:47 Macrocytosis Not Reportable 10/14/18 04:47 Spherocytes Not Reportable 10/14/18 04:47 Pappenheimer Bodies Not Reportable 10/14/18 04:47 Sickle Cells Not Reportable 10/14/18 04:47 Target Cells Not Reportable 10/14/18 04:47 Tear Drop Cells Not Reportable 10/14/18 04:47 Ovalocytes Few 10/14/18 04:47 Helmet Cells Not Reportable 10/14/18 04:47 [place] Bodies Not Reportable 10/14/18 04:47 [place] Rings Not Reportable 10/14/18 04:47 Bon[place]acio Cells Not Reportable 10/14/18 04:47 Bite Cells Not Reportable 10/14/18 04:47 Crenated Cell Not Reportable 10/14/18 04:47 Elliptocytes Not Reportable 10/14/18 04:47 Acanthocytes (Spur) Not Reportable 10/14/18 04:47 Rouleaux Not Reportable 10/14/18 04:47 Hemoglobin C Crystals Not Reportable 10/14/18 04:47 Schistocytes Not Reportable 10/14/18 04:47 Malaria parasites Not Reportable 10/14/18 04:47 Kirill Bodies Not Reportable 10/14/18 04:47 Hem Pathologist Commnt No 10/14/18 04:47 PT 12.7 Sec. (12.2-14.9) 10/13/18 11:58 INR 0.90 (0.87-1.13) 10/13/18 11:58 APTT 20.7 Sec. (24.2-36.6) L 10/13/18 11:58 Thrombin Time 20.0 Sec. (15.1-19.6) H 10/13/18 11:58 Sodium 148 mmol/L (137-145) H D 10/14/18 04:47 Potassium 4.1 mmol/L (3.6-5.0) 10/14/18 04:47 Chloride 95.2 mmol/L (98-107) L 10/14/18 04:47 Carbon Dioxide 28 mmol/L (22-30) 10/14/18 04:47 Anion Gap 29 mmol/L 10/14/18 04:47 BUN 11 mg/dL (9-20) 10/14/18 04:47 Creatinine 0.8 mg/dL (0.8-1.5) 10/14/18 04:47 Estimated GFR > 60 ml/min 10/14/18 04:47 BUN/Creatinine Ratio 14 % 10/14/18 04:47 Glucose 200 mg/dL (75-100) H 10/14/18 04:47 POC Glucose 133 (70-105) H 10/15/18 07:49 Hemoglobin A1c 17.4 % (4-6) H 10/13/18 12:55 Calcium 8.8 mg/dL (8.4-10.2) 10/14/18 04:47 Total Bilirubin 0.40 mg/dL (0.1-1.2) 10/14/18 04:47 AST 22 units/L (5-40) 10/14/18 04:47 ALT 27 units/L (7-56) 10/14/18 04:47 Alkaline Phosphatase 41 units/L (35-129) 10/14/18 04:47 Total Creatine Kinase 210 units/L (55-170) H 10/13/18 11:58 CK-MB (CK-2) 2.4 ng/mL (0.0-4.0) 10/13/18 11:58 CK-MB (CK-2) Rel Index 1.1 (0-4) 10/13/18 11:58 Troponin T < 0.010 ng/mL (0.00-0.029) 10/13/18 11:58 Total Protein 6.2 g/dL (6.3-8.2) L 10/14/18 04:47 Albumin 3.3 g/dL (3.9-5) L 10/14/18 04:47 Albumin/Globulin Ratio 1.1 % 10/14/18 04:47 Triglycerides 198 mg/dL (2-149) H 10/14/18 04:47 Cholesterol 128 mg/dL (50-199) 10/14/18 04:47 LDL Cholesterol Direct 74 mg/dL (50-130) 10/14/18 04:47 HDL Cholesterol 40 mg/dL (40-59) 10/14/18 04:47 Cholesterol/HDL Ratio 3.20 % 10/14/18 04:47 Urine Color Yellow (Yellow) 10/13/18 17:04 Urine Turbidity Clear (Clear) 10/13/18 17:04 Urine pH 5.0 (5.0-7.0) 10/13/18 17:04 Ur Specific [place] 1.046 (1.003-1.030) H 10/13/18 17:04 Urine Protein <15 mg/dl mg/dL (Negative) 10/13/18 17:04 Urine Glucose (UA) >=500 mg/dL (Negative) 10/13/18 17:04 Urine Ketones 20 mg/dL (Negative) 10/13/18 17:04 Urine Blood Neg (Negative) 10/13/18 17:04 Urine Nitrite Neg (Negative) 10/13/18 17:04 Urine Bilirubin Neg (Negative) 10/13/18 17:04 Urine Urobilinogen < 2.0 mg/dL (<2.0) 10/13/18 17:04 Ur Leukocyte Esterase Neg (Negative) 10/13/18 17:04 Urine WBC (Auto) < 1.0 /HPF (0.0-6.0) 10/13/18 17:04 Urine RBC (Auto) < 1.0 /HPF (0.0-6.0) 10/13/18 17:04 Urine Mucus Few /HPF 10/13/18 17:04 Plasma/Serum Alcohol < 0.01 % (0-0.07) 10/13/18 11:58 Blood Type A POSITIVE 10/13/18 11:58 Antibody Screen Negative 10/13/18 11:58 Active Medications - Current Medications Current Medications: Generic Name Dose Route Start Last Admin Trade Name Freq PRN Reason Stop Dose Admin Acetaminophen 650 mg 10/13/18 17:53 Tylenol PO Q4H PRN Pain MILD(1-3)/Fever >100.5/PANG Aspirin 81 mg 10/15/18 10:00 10/15/18 09:50 Baby Aspirin PO 81 mg QDAY MIGUEL Administration Atorvastatin Calcium 40 mg 10/13/18 22:00 10/14/18 22:03 Lipitor PO 40 mg QHS MIGUEL Administration Clopidogrel Bisulfate 75 mg 10/13/18 19:00 10/15/18 09:07 Plavix PO 75 mg QDAY MIGUEL Administration Enoxaparin Sodium 40 mg 10/13/18 22:00 10/14/18 22:03 Lovenox SUB-Q 40 mg QDAY@2200 MIGUEL Administration Famotidine 20 mg 10/13/18 22:00 10/15/18 09:07 Pepcid PO 20 mg BID MIGUEL Administration Hydromorphone HCl 0.5 mg 10/13/18 17:54 Dilaudid IV Q3H PRN Pain , Severe (7-10) Levetiracetam 750 mg/ Sodium 107.5 mls @ 400 mls/hr 10/14/18 16:30 10/15/18 05:16 Chloride IV 400 mls/hr Q12H MIGUEL Administration Ibuprofen 600 mg 10/13/18 17:54 Motrin PO Q6H PRN Pain, Mild (1-3) Insulin Human Lispro 0 unit 10/13/18 22:00 10/15/18 08:07 Humalog SUB-Q Not Given ACHS [facility] Protocol Lorazepam 1 mg 10/13/18 18:03 10/13/18 22:45 Ativan IV 1 mg Q1H PRN Administration Seizures Lorazepam 2 mg 10/14/18 15:35 Ativan IV Q4H PRN Agitation Losartan Potassium 100 mg 10/13/18 19:00 10/15/18 09:06 Cozaar PO 100 mg QDAY MIGUEL Administration Metformin HCl 500 mg 10/13/18 22:00 10/15/18 09:07 Glucophage PO 500 mg BID MIGUEL Administration Ondansetron HCl 4 mg 10/13/18 17:53 Zofran IV Q8H PRN Nausea And Vomiting Oxycodone/Acetaminophen 1 tab 10/13/18 17:54 Percocet 5/325 PO Q6H PRN Pain, Moderate (4-6) Sodium Chloride 10 ml 10/13/18 22:00 10/15/18 09:07 Sodium Chloride Flush Syringe 10 Ml IV 10 ml BID MIGUEL Administration Sodium Chloride 10 ml 10/13/18 17:53 Sodium Chloride Flush Syringe 10 Ml IV PRN PRN LINE FLUSH Nutrition/Malnutrition Assess - Dietary Evaluation Nutrition/Malnutrition Findings: Nutrition Notes Start: 10/14/18 08:58 Freq: Status: Active Protocol: Document 10/14/18 08:58 CP (Rec: 10/14/18 09:01 CP [id number]) Co-Sign 10/14/18 08:58 LP Nutrition Notes 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 Pt has a larry score of 20. Nutrition Intervention Revisit per MD consult or patient Sign Off request:
--- NOTE | 2018-10-15 13:22 | Progress Note ---
Subjective Date of service: 10/15/18 Interval history: explained to the patient/ the results of all testing the right MCA is patent and he is making excellent recovery from the stroke Objective - Vital Sign Vital Signs - 12hr 10/15/18 10/15/18 10/15/18 04:24 07:42 09:06 Temperature 97.4 F L 97.7 F Pulse Rate 80 82 82 Respiratory 20 18 Rate Blood Pressure 106/75 122/84 122/84 O2 Sat by Pulse 100 99 Oximetry 10/15/18 12:16 Temperature 97.7 F Pulse Rate 88 Respiratory 18 Rate Blood Pressure 130/87 O2 Sat by Pulse 100 Oximetry - Laboratory Findings CBC and BMP: 10/14/18 04:47 10/15/18 09:45 Abnormal Lab Findings: Abnormal Labs 10/13/18 10/13/18 10/13/18 11:48 11:58 11:58 Lymph % (Auto) 35.1 H Lymphocytes % (Manual) APTT 20.7 L Thrombin Time 20.0 H Sodium Chloride BUN Creatinine Glucose POC Glucose 345 H Hemoglobin A1c Total Creatine Kinase Total Protein Albumin Triglycerides Ur Specific [place] 10/13/18 10/13/18 10/13/18 11:58 12:55 17:04 Lymph % (Auto) Lymphocytes % (Manual) APTT Thrombin Time Sodium Chloride 97.4 L BUN Creatinine Glucose 421 H POC Glucose Hemoglobin A1c 17.4 H Total Creatine Kinase 210 H Total Protein Albumin Triglycerides Ur Specific [place] 1.046 H 10/13/18 10/14/18 10/14/18 20:56 04:47 04:47 Lymph % (Auto) Lymphocytes % (Manual) 54.0 H APTT Thrombin Time Sodium 148 H D Chloride 95.2 L BUN Creatinine Glucose 200 H POC Glucose 305 H Hemoglobin A1c Total Creatine Kinase Total Protein 6.2 L Albumin 3.3 L Triglycerides 198 H Ur Specific [place] 10/14/18 10/14/18 10/14/18 14:54 17:07 22:11 Lymph % (Auto) Lymphocytes % (Manual) APTT Thrombin Time Sodium Chloride BUN Creatinine Glucose POC Glucose 368 H 375 H 349 H Hemoglobin A1c Total Creatine Kinase Total Protein Albumin Triglycerides Ur Specific [place] 10/15/18 10/15/18 10/15/18 07:49 09:45 12:47 Lymph % (Auto) Lymphocytes % (Manual) APTT Thrombin Time Sodium Chloride BUN 6 L Creatinine 0.7 L Glucose 281 H POC Glucose 133 H 262 H Hemoglobin A1c Total Creatine Kinase Total Protein Albumin Triglycerides Ur Specific [place]
[2018-10-15] MEDS: LOVENOX SUB-Q SCH (22:06)
[2018-10-15] MEDS: TRESIBA FLEXTOUCH U-100 SQ SCH (22:07)
[2018-10-16] MEDS: KEPPRA 750 MG in NACL 0.9% 100 ML IV SCH (04:27)
[2018-10-16] MEDS: HumaLOG SUB-Q SCH ×2 (07:58→12:46)
[2018-10-16] MEDS: GLUCOPHAGE PO SCH (10:03)
[2018-10-16] MEDS: PLAVIX PO SCH (10:03)
[2018-10-16] MEDS: PEPCID PO SCH (10:03)
[2018-10-16] MEDS: BABY ASPIRIN PO SCH (10:03)
[2018-10-16] MEDS: COZAAR PO SCH (10:03)
[2018-10-16] MEDS: SODIUM CHLORIDE FLUSH SYRINGE 10 ML IV SCH (10:14)
--- NOTE | 2018-10-16 10:41 | Discharge Summary ---
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 He was seen and evaluated in Emergency Department. CT head revealed acute ischemia right parietal region. He was given aspirin, admitted. Patient had seizures in hospital was started on keppra. Patient was evaluated by Neurology. MRI confirmed acute ischemic stroke on right. He was put on Aspirin and Plavix. He was evaluated by Physical therapist. weakness resolved so was discharged home with no PT needs. He was advised no driving for at least 6 months and until cleared by physician. Total time spent on discharge, 32mins Disposition: DC-01 TO HOME OR SELFCARE - Discharge Diagnoses (1) Acute CVA (cerebrovascular accident) Status: Acute (2) Hyperlipidemia Status: Chronic Qualifiers: Hyperlipidemia type: mixed hyperlipidemia Qualified Code(s): E78.2 - Mixed hyperlipidemia (3) Hypertension Status: Chronic Qualifiers: Hypertension type: essential hypertension Qualified Code(s): I10 - Essential (primary) hypertension (4) Insulin dependent diabetes mellitus Status: Chronic (5) New onset seizure Status: Acute Core Measure Documentation - Palliative Care Palliative Care/ Comfort Measures: Not Applicable - Core Measures Any of the following diagnoses?: stroke - Stroke Discharge Requirements Statin for LDL = or >70 mg/dl on DC: Yes Anticoag for atrial fib/atrial flutter: Not Applicable Antithrombotic for ischemic stroke: Yes Exam - Constitutional Vitals: Temp Pulse Resp BP Pulse Ox 98.6 F 88 18 110/78 95 10/16/18 08:29 10/16/18 10:03 10/16/18 08:29 10/16/18 10:03 10/16/18 08:29 Plan Activity: no driving until cleared by PCP Diet: low fat, low cholesterol, low salt Additional Instructions: 1.Follow up with PCP or [facility] [place] in 1 week. 2.Follow up with Dr. Abbott in 1 week. 3.No driving or operation of heavy machines for 6 months and until cleared by Physician Follow up with: PRIMARY CARE, [Primary Care Provider] - 3-5 Days Prescriptions: Aspirin EC 81 mg PO QDAY #30 tablet. levETIRAcetam [Keppra TAB] 750 mg PO BID #60 tablet AtorvaSTATin [Lipitor] 40 mg PO QHS #30 tablet Famotidine [Pepcid] 20 mg PO BID #60 tablet Clopidogrel [Plavix] 75 mg PO QDAY #30 tablet Lisinopril [Zestril TAB] 20 mg PO QDAY #30 tablet
--- NOTE | 2018-10-16 10:50 | Progress Note ---
Subjective Date of service: 10/16/18 Interval history: spoke with Dr. Chaves about getting results of the ECHO especially since there could have been distal embolus in the terminal Right MCA after that can be discharged Objective - Vital Sign Vital Signs - 12hr 10/15/18 10/16/18 10/16/18 22:57 03:47 08:29 Temperature 98.0 F 98.0 F 98.6 F Pulse Rate 82 90 Respiratory 18 18 18 Rate Blood Pressure 114/75 106/73 103/73 O2 Sat by Pulse 99 95 Oximetry 10/16/18 10:03 Temperature Pulse Rate 88 Respiratory Rate Blood Pressure 110/78 O2 Sat by Pulse Oximetry - Laboratory Findings CBC and BMP: 10/14/18 04:47 10/15/18 09:45 Abnormal Lab Findings: Abnormal Labs 10/13/18 10/13/18 10/13/18 11:48 11:58 11:58 Lymph % (Auto) 35.1 H Lymphocytes % (Manual) APTT 20.7 L Thrombin Time 20.0 H Sodium Chloride BUN Creatinine Glucose POC Glucose 345 H Hemoglobin A1c Total Creatine Kinase Total Protein Albumin Triglycerides Ur Specific [place] 10/13/18 10/13/18 10/13/18 11:58 12:55 17:04 Lymph % (Auto) Lymphocytes % (Manual) APTT Thrombin Time Sodium Chloride 97.4 L BUN Creatinine Glucose 421 H POC Glucose Hemoglobin A1c 17.4 H Total Creatine Kinase 210 H Total Protein Albumin Triglycerides Ur Specific [place] 1.046 H 10/13/18 10/14/18 10/14/18 20:56 04:47 04:47 Lymph % (Auto) Lymphocytes % (Manual) 54.0 H APTT Thrombin Time Sodium 148 H D Chloride 95.2 L BUN Creatinine Glucose 200 H POC Glucose 305 H Hemoglobin A1c Total Creatine Kinase Total Protein 6.2 L Albumin 3.3 L Triglycerides 198 H Ur Specific [place] 10/14/18 10/14/18 10/14/18 14:54 17:07 22:11 Lymph % (Auto) Lymphocytes % (Manual) APTT Thrombin Time Sodium Chloride BUN Creatinine Glucose POC Glucose 368 H 375 H 349 H Hemoglobin A1c Total Creatine Kinase Total Protein Albumin Triglycerides Ur Specific [place] 10/15/18 10/15/18 10/15/18 07:49 09:45 12:47 Lymph % (Auto) Lymphocytes % (Manual) APTT Thrombin Time Sodium Chloride BUN 6 L Creatinine 0.7 L Glucose 281 H POC Glucose 133 H 262 H Hemoglobin A1c Total Creatine Kinase Total Protein Albumin Triglycerides Ur Specific [place] 10/15/18 10/15/18 16:38 21:05 Lymph % (Auto) Lymphocytes % (Manual) APTT Thrombin Time Sodium Chloride BUN Creatinine Glucose POC Glucose 312 H 242 H Hemoglobin A1c Total Creatine Kinase Total Protein Albumin Triglycerides Ur Specific [place]
[2018-10-16 11:29] VITALS: BP 107/72
== END 2018-10-16 14:00 | disposition home or self-care (01) | DRG 65 ==
LOC: ED 11:40 → 4A 15:45
PROVIDERS: ADMIT Internal Medicine; ATTEND Internal Medicine
DX: I63.9 Cerebral infarction, unspecified (principal); G81.91 Hemiplegia, unspecified affecting right dominant side; E11.9 Type 2 diabetes mellitus without complications; E78.2 Mixed hyperlipidemia; R56.9 Unspecified convulsions; I10 Essential (primary) hypertension; R00.0 Tachycardia, unspecified; R29.810 Facial weakness; Z79.4 Long term (current) use of insulin; Z72.89 Other problems related to lifestyle; Z79.899 Other long term (current) drug therapy
CPT/HCPCS: 36415; 70450; 70496; 70498; 70544; 70551; 80048; 80053; 80061; 80320; 81001; 82550; 82553; 82962; 83036; 84484; 85007; 85025; 85610; 85670; 85730; 86850; 86900; 86901; 90686; 93005; 93010; 93306; 93880; 96374; G0378; A9270-GY; G0480; J1650; J1815; J1953; J2060; J3246; J7030; Q9967